=== PATIENT | male | born 1990 | race Two or more races ===

== ENCOUNTER → 2020-01-28 | Emergency (ER) | payer OTHER ==
[~2020-01-28] VITALS: Ht 170.2 cm; Wt 102.1 kg
[2020-01-28 20:33] VITALS: BP 118/68
== END | disposition home or self-care (01) ==
LOC: ER 18:21
DX: S83.91XA Sprain of unspecified site of right knee, initial encounter (principal); Z88.2 Allergy status to sulfonamides; Z88.8 Allergy status to other drugs, medicaments and biological substances; X58.XXXA Exposure to other specified factors, initial encounter; Y93.89 Activity, other specified; Y92.89 Other specified places as the place of occurrence of the external cause; Y99.0 Civilian activity done for income or pay
CPT/HCPCS: 73562